=== PATIENT | female | born 1965 | race Caucasian/White ===

== ENCOUNTER 2019-03-05 02:33 | Emergency (ER) | payer MEDICAID ==
[~2019-03-05] VITALS: Ht 165.1 cm; Wt 69.0 kg
[2019-03-05] MEDS ORDERED: PREDNISONE 20MG TABLET PO STA (03:03)
[2019-03-05] MEDS ORDERED: ALBUTEROL (0.083%) 2.5MG/3ML NEB HHN STA (03:03)
[2019-03-05] MEDS ORDERED: IPRATROPIUM BROMIDE (0.02%) 0.5MG/2.5ML NEB HHN STA (03:03)
[2019-03-05 05:00] VITALS: BP 113/55
== END 2019-03-05 05:28 | disposition home or self-care (01) ==
LOC: ER 02:33
DX: J68.0 Bronchitis and pneumonitis due to chemicals, gases, fumes and vapors (principal)
CPT/HCPCS: 71045; 94640; 94644; 99285; J7512; J7611; Z7610

== ENCOUNTER 2019-05-23 20:57 | Inpatient (IN) | payer MEDICAID ==
[~2019-05-23] VITALS: Ht 152.4 cm; Wt 78.5 kg
[2019-05-23] MEDS ORDERED: SODIUM CHLORIDE 0.9% 1,000 ML IV ONE (21:53)
[2019-05-23 23:02] LABS: BASOPHILS % 0.4 % (0.0-2.0); EOSINOPHILS % 2.3 % (0.0-5.0); HEMATOCRIT. 40.5 % (36.0-48.0); HEMOGLOBIN. 14.1 g/dL (12.0-16.0); LYMPHOCYTES % 16.6 % (20.0-50.0); MEAN CORPUSCULAR HEMOGLOBIN 29.4 pg (28.0-32.0); MEAN CORPUSCULAR VOLUME 84.4 fL (81.0-99.0); MEAN PLATELET VOLUME 8.3 fl (7.4-10.4); MONOCYTES % 5.6 % (2.0-8.0); NEUTROPHILS % 75.1 % (40.0-76.0); PLATELET 265 x1000/uL (130-400); RED CELL DISTRIBUTION WIDTH 14.2 % (11.6-14.6)
[2019-05-23 23:04] LABS: CHLORIDE 102 mEq/L (98-107)
[2019-05-23 23:09] LABS: PROTHROMBIN TIME 10.7 sec (9.6-11.0)
[2019-05-24] MEDS ORDERED: ALBUTEROL (0.083%) 2.5MG/3ML NEB HHN STA (00:05)
[2019-05-24] MEDS ORDERED: METHYLPREDNISOLONE SOD SUCC 125 MG/2 ML VIAL IV STA (00:05)
[2019-05-24] MEDS ORDERED: IPRATROPIUM BROMIDE (0.02%) 0.5MG/2.5ML NEB HHN STA (00:05)
[2019-05-24] MEDS ORDERED: KETOROLAC 30MG/ML VIAL IV ONE (00:15)
[2019-05-24] MEDS ORDERED: ALBUTEROL (0.5%) 2.5MG/0.5ML NEB HHN ONE (00:18)
[2019-05-24] MEDS ORDERED: IPRATROPIUM/ALBUTEROL 0.5-3(2.5)MG/3ML NEB ONE (00:19)
[2019-05-24] MEDS ORDERED: LEVOFLOXACIN 500MG PREMIX 100 ML IV ONE (00:30)
[2019-05-24 00:36] LABS: CLARITY URINE CLEAR (CLEAR); COLOR URINE YELLOW (YELLOW); KETONES URINE NEGATIVE (NEGATIVE); LEUKOCYTE ESTERASE URINE 1+ (NEGATIVE); NITRITE URINE NEGATIVE (NEGATIVE); OCCULT BLOOD URINE NEGATIVE (NEGATIVE); PH URINE >=9.0 (4.5-8.0); PROTEIN URINE NEGATIVE (NEGATIVE); SPECIFIC GRAVITY URINE 1.018 (1.005-1.030); UROBILINOGEN URINE 0.2 E.U./dL (0.2-1.0)
[2019-05-24] MEDS ORDERED: ASPIRIN 81MG TABLET PO ONE (01:00)
[2019-05-24 03:15] VITALS: BP 108/49
[2019-05-24 03:24] VITALS: BP 108/49
[2019-05-24] MEDS ORDERED: ACETAMINOPHEN 325MG TABLET PO PRN (05:15)
[2019-05-24 07:51] VITALS: BP 105/64
[2019-05-24] MEDS ORDERED: ASPIRIN 81MG TABLET PO SCH (09:00)
[2019-05-24] MEDS ORDERED: ENOXAPARIN 40MG/0.4ML SYR SUBCUT SCH (09:00)
[2019-05-24 10:57] LABS: CHLORIDE 108 mEq/L (98-107)
[2019-05-24 11:08] LABS: CREATINE KINASE 102 IU/L (26-192)
[2019-05-24 11:10] LABS: CREATINE KINASE MB FRACTION 1.3 ng/mL (0.5-3.6)
[2019-05-24 12:00] VITALS: BP 119/52
[2019-05-24] MEDS ORDERED: GUAIFENESIN 200MG/10ML SUGAR FREE UDC PO NR (14:00)
[2019-05-24] MEDS ORDERED: PSEUDOEPHEDRINE HCL 30MG TABLET PO NR (15:00)
[2019-05-24 15:32] LABS: *AMPHETAMINES SCREEN URINE NEGATIVE (NEGATIVE); *BARBITURATES SCREEN URINE NEGATIVE (NEGATIVE); *BENZODIAZEPINES SCREEN URINE NEGATIVE (NEGATIVE); *COCAINE SCREEN URINE NEGATIVE (NEGATIVE)
[2019-05-24 15:33] LABS: CANNABINOID URINE SCREEN NEGATIVE (NEGATIVE); METHADONE URINE SCREEN NEGATIVE (NEGATIVE); OPIATES URINE SCREEN NEGATIVE (NEGATIVE); PHENCYCLIDINE URINE SCREEN NEGATIVE (NEGATIVE)
[2019-05-24 16:00] VITALS: BP 113/55
[2019-05-24 16:37] VITALS: BP 113/55
[2019-05-25] MEDS ORDERED: ASPIRIN 81MG TABLET PO SCH (09:00)
== END 2019-05-24 19:05 | disposition home or self-care (01) | DRG 113 ==
LOC: ER 23:39 → EDBEDREQDT 05-24 00:55 → EDBEDREQSVC 05-24 00:55 → EDBEDREQ 05-24 00:55 → EDBEDREQTM 05-24 00:55 → ENRESERV 05-24 02:16 → 5WST 05-24 03:13
PROVIDERS: ADMIT Internal Medicine; ATTEND Internal Medicine
DX: J06.9 Acute upper respiratory infection, unspecified (principal); Z87.01 Personal history of pneumonia (recurrent); Z90.49 Acquired absence of other specified parts of digestive tract
CPT/HCPCS: 36415; 71045; 80048; 80305; 81003; 82550; 82553; 82947; 83605; 83735; 83880; 84145; 84484; 87804; 93005; 93306; 93970; 96365; 99285; J1885; J1956; J2930; J7030; J7040; J7611; J7620

== ENCOUNTER 2023-09-24 16:19 | Inpatient (IN) | payer MEDICAID, OTHER ==
[~2023-09-24] VITALS: Ht 162.6 cm; Wt 81.8 kg
[2023-09-24] MEDS ORDERED: MORPHINE SULFATE 4 MG/ML CPJ (NOT FOR IM USE) IV STA (16:43)
[2023-09-24] MEDS ORDERED: ONDANSETRON HCL 4MG/2ML INJ IV STA (16:43)
[2023-09-24] MEDS ORDERED: SODIUM CHLORIDE 0.9% 1,000 ML IV ONE (16:45)
[2023-09-24 17:54] LABS: BASOPHILS % 0.2 % (0.0-2.0); HEMATOCRIT. 39.1 % (36.0-48.0); HEMOGLOBIN. 13.1 g/dL (12.0-16.0); LYMPHOCYTES % 11.2 % (20.0-50.0); MEAN CORPUSCULAR HEMOGLOBIN 29.5 pg (28.0-32.0); MEAN CORPUSCULAR HGB CONC 33.4 g/dL (31.0-37.0); MEAN CORPUSCULAR VOLUME 88.3 fL (81.0-99.0); MEAN PLATELET VOLUME 8.2 fl (7.4-10.4); MONOCYTES % 4.7 % (2.0-8.0); NEUTROPHILS % 83.9 % (40.0-76.0); PLATELET 249 x1000/uL (130-400); RED BLOOD CELL COUNT 4.43 mill/uL (4.2-5.4); RED CELL DISTRIBUTION WIDTH 13.7 % (11.6-14.6); WHITE BLOOD COUNT 9.7 x1000/uL (4.5-11.0)
[2023-09-24 18:50] LABS: ALANINE AMINOTRANSFERASE 31 IU/L (10-49); ALBUMIN 4.2 g/dL (3.2-4.8); ASPARTATE AMINOTRANSFERASE 37 IU/L (<34); BILIRUBIN TOTAL 0.4 mg/dL (0.1-1.0); CALCIUM 8.8 mg/dL (8.7-10.4); CARBON DIOXIDE 23 mEq/L (21-32); CHLORIDE 101 mEq/L (98-107); CREATININE 0.6 mg/dL (0.6-1.0); GLUCOSE 116 mg/dL (70-105); POTASSIUM 3.2 mEq/L (3.5-5.1); PROTEIN TOTAL 7.8 g/dL (6.0-8.3); SODIUM 134 mEq/L (136-145); UREA NITROGEN BLOOD 13 mg/dL (9-23)
[2023-09-24 19:12] LABS: TROPONIN I HIGH SENSITIVITY 12 ng/L (3.0-34)
[2023-09-24] MEDS ORDERED: METRONIDAZOLE 500 MG PREMIX 100 ML IV ONE (19:30)
[2023-09-24] MEDS ORDERED: LEVOFLOXACIN 750MG PREMIX 150 ML IV ONE (19:30)
[2023-09-24] MEDS ORDERED: MAGNESIUM/ALUMINUM HYDROXIDE/SIMETHICONE 30ML UDC PO PRN (20:15)
[2023-09-24] MEDS ORDERED: CLONIDINE 0.1MG TABLET PO PRN (20:15)
[2023-09-24] MEDS ORDERED: POTASSIUM CHLORIDE 20MEQ/PACKET PO ONE (20:15)
[2023-09-24] MEDS ORDERED: POTASSIUM CHLORIDE 20MEQ TABLET SR PO NR (20:15)
[2023-09-24] MEDS ORDERED: KCL 20MEQ/100ML PREMIX 100 ML IV NR (20:15)
[2023-09-24] MEDS ORDERED: ACETAMINOPHEN 325MG TABLET PO PRN ×2 (20:15)
[2023-09-24] MEDS ORDERED: GUAIFENESIN 200MG/10ML SUGAR FREE UDC PO PRN (20:15)
[2023-09-24] MEDS ORDERED: ACETAMINOPHEN 325MG TABLET PO ONE (20:15)
[2023-09-24] MEDS ORDERED: DOCUSATE SODIUM 100MG CAPSULE PO PRN (20:15)
[2023-09-24] MEDS ORDERED: IPRATROPIUM/ALBUTEROL 0.5-3(2.5)MG/3ML NEB HHN PRN (20:15)
[2023-09-24] MEDS ORDERED: LEVOFLOXACIN 750MG PREMIX 150 ML IV SCH (21:30)
[2023-09-24 21:54] LABS: PHOSPHORUS 2.5 mg/dL (2.5-4.9)
[2023-09-24] MEDS ORDERED: METRONIDAZOLE 500 MG PREMIX 100 ML IV SCH (22:00)
[2023-09-24 23:20] LABS: CREATINE KINASE 98 IU/L (34-145); CREATINE KINASE MB FRACTION < 0.5 ng/mL (0.5-3.6); TROPONIN I HIGH SENSITIVITY 13 ng/L (3.0-34)
[2023-09-25] VITALS (7 sets, daily range): BP systolic 107–118; BP diastolic 60–84; PULSE 66–84; RESP 16–20; TEMP 97.5–98.1
[2023-09-25] MEDS: ONDANSETRON HCL 4MG/2ML INJ IV PRN ×2 (01:10→21:27)
[2023-09-25] MEDS ORDERED: KETOROLAC 15MG/ML VIAL IV NR (01:15)
[2023-09-25 06:10] LABS: BASOPHILS % 0.3 % (0.0-2.0); EOSINOPHILS % 0.3 % (0.0-5.0); HEMATOCRIT. 34.3 % (36.0-48.0); HEMOGLOBIN. 11.7 g/dL (12.0-16.0); LYMPHOCYTES % 20.6 % (20.0-50.0); MEAN CORPUSCULAR HEMOGLOBIN 30.4 pg (28.0-32.0); MEAN CORPUSCULAR VOLUME 89.4 fL (81.0-99.0); MEAN PLATELET VOLUME 8.2 fl (7.4-10.4); MONOCYTES % 8.8 % (2.0-8.0); PLATELET 216 x1000/uL (130-400); RED BLOOD CELL COUNT 3.84 mill/uL (4.2-5.4); RED CELL DISTRIBUTION WIDTH 13.6 % (11.6-14.6)
[2023-09-25] MEDS: METRONIDAZOLE 500 MG PREMIX 100 ML IV SCH ×3 (06:13→22:00)
[2023-09-25 06:53] LABS: ALANINE AMINOTRANSFERASE 22 IU/L (10-49); ALBUMIN 3.7 g/dL (3.2-4.8); ASPARTATE AMINOTRANSFERASE 26 IU/L (<34); BILIRUBIN TOTAL 0.4 mg/dL (0.1-1.0); CALCIUM 8.7 mg/dL (8.7-10.4); CARBON DIOXIDE 22 mEq/L (21-32); CHLORIDE 106 mEq/L (98-107); CHOLESTEROL 161 mg/dL (<200); CREATININE 0.6 mg/dL (0.6-1.0); GLUCOSE 97 mg/dL (70-105); HDL CHOLESTEROL 51 mg/dL (>65); LDL CHOLESTEROL 131 mg/dL (5-100); POTASSIUM 3.6 mEq/L (3.5-5.1); PROTEIN TOTAL 6.4 g/dL (6.0-8.3); SODIUM 135 mEq/L (136-145); T4 FREE 1.02 ng/dL (0.89-1.76); THYROID STIMULATING HORMONE 1.61 uIU/mL (0.55-4.78); TRIGLYCERIDE 82 mg/dL (0-150); UREA NITROGEN BLOOD 9 mg/dL (9-23)
[2023-09-25] MEDS: FAMOTIDINE 20MG/2ML VIAL IV SCH ×2 (08:49→21:26)
[2023-09-25 11:04] LABS: CREATINE KINASE MB FRACTION < 0.5 ng/mL (0.5-3.6); TROPONIN I HIGH SENSITIVITY 12 ng/L (3.0-34)
[2023-09-25] MEDS: KETOROLAC 15MG/ML VIAL IV PRN ×2 (12:16→21:27)
[2023-09-25 18:51] LABS: CREATINE KINASE 72 IU/L (34-145)
[2023-09-25] MEDS: SODIUM CHLORIDE 0.9% 1,000 ML IV SCH (21:09)
[2023-09-25] MEDS: LEVOFLOXACIN 750MG PREMIX 150 ML IV SCH (21:26)
[2023-09-25] MEDS ORDERED: MAGNESIUM 1 G PREMIX 100 ML IV NR (22:00)
[2023-09-26] VITALS: BP 112/57; PULSE 71; RESP 18; TEMP 97.9
[2023-09-26 04:00] VITALS: BP 106/53; PULSE 70; RESP 20; TEMP 97.5
[2023-09-26] MEDS: ONDANSETRON HCL 4MG/2ML INJ IV PRN (06:15)
[2023-09-26] MEDS: METRONIDAZOLE 500 MG PREMIX 100 ML IV SCH ×3 (06:15→21:32)
[2023-09-26] MEDS: KETOROLAC 15MG/ML VIAL IV PRN (06:15)
[2023-09-26 07:52] LABS: HEMATOCRIT. 33.8 % (36.0-48.0); HEMOGLOBIN. 11.4 g/dL (12.0-16.0); MEAN CORPUSCULAR HEMOGLOBIN 29.8 pg (28.0-32.0); MEAN CORPUSCULAR HGB CONC 33.7 g/dL (31.0-37.0); MEAN CORPUSCULAR VOLUME 88.4 fL (81.0-99.0); MEAN PLATELET VOLUME 8.7 fl (7.4-10.4); PLATELET 229 x1000/uL (130-400); RED BLOOD CELL COUNT 3.82 mill/uL (4.2-5.4); RED CELL DISTRIBUTION WIDTH 13.7 % (11.6-14.6); WHITE BLOOD COUNT 5.9 x1000/uL (4.5-11.0)
[2023-09-26 08:00] VITALS: BP 92/52; PULSE 20; RESP 20; TEMP 98.2
[2023-09-26 08:09] LABS: DIFFERENTIAL COMMENT 1
[2023-09-26 09:14] LABS: CALCIUM 8.6 mg/dL (8.7-10.4); CARBON DIOXIDE 17 mEq/L (21-32); CHLORIDE 106 mEq/L (98-107); CREATININE 0.5 mg/dL (0.6-1.0); GLUCOSE 71 mg/dL (70-105); PHOSPHORUS 3.4 mg/dL (2.5-4.9); POTASSIUM 3.5 mEq/L (3.5-5.1); SODIUM 138 mEq/L (136-145); UREA NITROGEN BLOOD 12 mg/dL (9-23)
[2023-09-26] MEDS: SODIUM CHLORIDE 0.9% 1,000 ML IV SCH ×2 (11:20→21:33)
[2023-09-26] MEDS: FAMOTIDINE 20MG/2ML VIAL IV SCH ×2 (11:20→21:32)
[2023-09-26 12:00] VITALS: BP 113/43; PULSE 20; RESP 20; TEMP 98.2
[2023-09-26 16:00] VITALS: BP 119/52; PULSE 63; RESP 20; TEMP 98.2
[2023-09-26 20:00] VITALS: BP 120/61; PULSE 66; RESP 20; TEMP 97.9
[2023-09-26] MEDS: LEVOFLOXACIN 750MG PREMIX 150 ML IV SCH (21:32)
[2023-09-26 23:21] LABS: PLATELET ESTIMATE NORMAL
[2023-09-27] VITALS: BP 117/49; PULSE 65; RESP 20; TEMP 97.7
[2023-09-27 04:00] VITALS: BP 134/59; PULSE 59; RESP 20; TEMP 97.5
[2023-09-27 04:16] LABS: HEMATOCRIT 31.7 % (36.0-48.0); HEMOGLOBIN 10.4 g/dL (12.0-16.0); MEAN CORPUSCULAR HEMOGLOBIN 29.3 pg (28.0-32.0); MEAN CORPUSCULAR HGB CONC 32.9 g/dL (31.0-37.0); PLATELET 247 x1000/uL (130-400); RED BLOOD CELL COUNT 3.57 mill/uL (4.2-5.4); RED CELL DISTRIBUTION WIDTH 13.5 % (11.6-14.6); WHITE BLOOD COUNT 4.8 x1000/uL (4.5-11.0)
[2023-09-27 04:29] LABS: CALCIUM 8.2 mg/dL (8.7-10.4); CARBON DIOXIDE 25 mEq/L (21-32); CHLORIDE 109 mEq/L (98-107); CREATININE 0.5 mg/dL (0.6-1.0); GLUCOSE 92 mg/dL (70-105); LACTATE DEHYDROGENASE 156 IU/L (120-246); POTASSIUM 3.8 mEq/L (3.5-5.1); SODIUM 140 mEq/L (136-145); UREA NITROGEN BLOOD 6 mg/dL (9-23)
[2023-09-27] MEDS: METRONIDAZOLE 500 MG PREMIX 100 ML IV SCH ×3 (06:27→21:42)
[2023-09-27] MEDS: ONDANSETRON HCL 4MG/2ML INJ IV PRN (06:27)
[2023-09-27] MEDS: SODIUM CHLORIDE 0.9% 1,000 ML IV SCH (09:09)
[2023-09-27] MEDS: FAMOTIDINE 20MG/2ML VIAL IV SCH ×2 (09:57→21:42)
[2023-09-27] MEDS ORDERED: KETOROLAC 15MG/ML VIAL IV PRN (10:30)
[2023-09-27] MEDS ORDERED: DIATR MEGLU/DIATRIZOATE SOLN 30ML PO SCH (10:30)
[2023-09-27 12:00] VITALS: BP 101/49; PULSE 63; RESP 17; TEMP 97.6
[2023-09-27 16:00] VITALS: BP 122/60; PULSE 64; RESP 18; TEMP 97.3
[2023-09-27 20:00] VITALS: BP 125/65; PULSE 69; RESP 20; TEMP 98.1
[2023-09-27] MEDS: LEVOFLOXACIN 750MG PREMIX 150 ML IV SCH (21:42)
[2023-09-28] VITALS: BP 134/65; PULSE 61; RESP 20; TEMP 97.7
[2023-09-28 04:00] VITALS: BP 114/55; PULSE 72; RESP 20; TEMP 97.5
[2023-09-28] MEDS: METRONIDAZOLE 500 MG PREMIX 100 ML IV SCH ×2 (06:56→13:25)
[2023-09-28 07:13] LABS: HEMATOCRIT 36.7 % (36.0-48.0); HEMOGLOBIN 12.2 g/dL (12.0-16.0); MEAN CORPUSCULAR HEMOGLOBIN 29.8 pg (28.0-32.0); MEAN CORPUSCULAR HGB CONC 33.4 g/dL (31.0-37.0); MEAN CORPUSCULAR VOLUME 89.3 fL (81.0-99.0); PLATELET 280 x1000/uL (130-400); RED BLOOD CELL COUNT 4.11 mill/uL (4.2-5.4); RED CELL DISTRIBUTION WIDTH 13.4 % (11.6-14.6); WHITE BLOOD COUNT 4.5 x1000/uL (4.5-11.0)
[2023-09-28 08:00] VITALS: BP 150/67; PULSE 66; RESP 20; TEMP 97.7
[2023-09-28 08:20] LABS: CALCIUM 8.7 mg/dL (8.7-10.4); CARBON DIOXIDE 22 mEq/L (21-32); CHLORIDE 107 mEq/L (98-107); CREATININE 0.5 mg/dL (0.6-1.0); GLUCOSE 91 mg/dL (70-105); PHOSPHORUS 3.5 mg/dL (2.5-4.9); POTASSIUM 3.3 mEq/L (3.5-5.1); SODIUM 142 mEq/L (136-145); UREA NITROGEN BLOOD < 5 mg/dL (9-23)
[2023-09-28] MEDS: FAMOTIDINE 20MG/2ML VIAL IV SCH (09:04)
[2023-09-28] MEDS ORDERED: LEVO-65 MT (09:24)
[2023-09-28] MEDS ORDERED: METR-167 MT (09:24)
[2023-09-28 10:31] VITALS: BP 150/67; PULSE 66; TEMP 97.7; O2SAT 100
[2023-09-28 12:00] VITALS: BP 136/65; PULSE 69; RESP 17; TEMP 99
== END 2023-09-28 14:07 | disposition home or self-care (01) | DRG 720 ==
LOC: ER 16:19 → 6EST 20:02 → EDBEDREQ 20:05
PROVIDERS: ADMIT Internal Medicine; ATTEND Internal Medicine
DX: A41.9 Sepsis, unspecified organism (principal); E87.1 Hypo-osmolality and hyponatremia; E87.6 Hypokalemia; E83.42 Hypomagnesemia; Z20.822 Contact with and (suspected) exposure to COVID-19; K57.32 Diverticulitis of large intestine without perforation or abscess without bleeding; Z90.49 Acquired absence of other specified parts of digestive tract; Z88.0 Allergy status to penicillin; Z88.8 Allergy status to other drugs, medicaments and biological substances
CPT/HCPCS: 36415; 71045; 74176; 80048; 80053; 80061; 82550; 82553; 83605; 83615; 83735; 83880; 84100; 84145; 84439; 84443; 84484; 85025; 85027; 85044; 87426; 87804; 93005; 93970; 99285; C1893; J1885; J1956; J2270; J2405; J3475; J3480; J3490; J7030; Q9963